=== PATIENT | female | born 1980 | race Caucasian/White ===

== ENCOUNTER 2018-03-23 16:57 | Inpatient (IN) | payer OTHER ==
[~2018-03-23] VITALS: Ht 149.9 cm; Wt 94.7 kg
[~2018-03-23 16:57] MED LIST: AMOXICILLIN 50500 MG PO; CIPROFLOXIN HC2.5 M1 OTIC; HYDROCHLOROTHIA25 M2 PO; MUPIROCIN22 GM TOP; NAPROSYN500 MG PO; NOHOMEMEDICATIONS; NORCO 5-325 TA1 EACH PO; ROBAXIN500 MG PO; TESSALON PERLE100 MG PO; ZPAK PO
[2018-03-23 17:03] VITALS: BP 132/77
[2018-03-23] MEDS ORDERED: LISINOPRIL20 MG (17:22)
[2018-03-23] MEDS ORDERED: HYDROCHLOROTH12.5 M1 PO (17:23)
[2018-03-23] MEDS ORDERED: CIPRO500 MG (17:24)
[2018-03-23] MEDS ORDERED: CELEXA20 MG PO (17:26)
[2018-03-23] MEDS ORDERED: ZOFRAN4 MG PO (17:27)
[2018-03-23 17:33] LABS: URINE BLOOD 3+ (Negative); URINE CLARITY CLEAR; URINE COLOR YELLOW; URINE GLUCOSE-RANDOM NEGATIVE (Negative); URINE KETONES 2+ (Negative); URINE LEUKOCYTES-REFLEX TRACE (Negative); URINE NITRITE-REFLEX NEGATIVE (Negative); URINE PROTEIN 1+ (Negative); URINE SPECIFIC GRAVITY 1.025 (1.005-1.030)
[2018-03-23 17:35] LABS: ICTOTEST (BILI CONFIRMATORY) Negative (Negative); URINE BILIRUBIN 1+ (Negative)
[2018-03-23 17:43] LABS: HEMATOCRIT 36.3 % (37.0-47.0); HEMOGLOBIN 12.7 gm/dL (12.0-15.0); MCH 29.9 pg (26.0-34.0); MCHC 35.1 g/dL (28.0-37.0); MCV 85.1 fL (80.0-100.0); MPV 8.5 fl. (7.2-11.1); NUCLEATED RBCS 0 /100WBC; PLATELET COUNT* 219 thou/uL (150-400); RBC 4.26 mil/uL (4.20-5.00); RDW-CV 12.6 % (10.5-14.5); WBC 10.9 thou/uL (4.0-11.0)
[2018-03-23 17:44] LABS: CRYSTALS None Seen /LPF (None Seen); HYALINE CASTS 0-3 Few /LPF (None Seen); MUCUS 0-3 Light strn/LPF (None Seen); SQUAMOUS >10 Many /LPF (0-3)
[2018-03-23 17:45] LABS: URINE WBC-REFLEX 6-15 Few /HPF (0-5)
[2018-03-23 17:46] LABS: BACTERIA-REFLEX 1-9 Few /HPF (None Seen)
[2018-03-23 17:51] LABS: CALCIUM 9.1 mg/dL (8.5-10.1)
[2018-03-23 17:53] LABS: POTASSIUM 2.5 mmol/L (3.5-5.1)
[2018-03-23 17:56] LABS: ALBUMIN 3.2 g/dL (3.4-5.0); TOTAL PROTEIN 7.5 g/dL (6.4-8.2)
[2018-03-23 18:21] LABS: ABSOLUTE LYMPHOCYTES 1.3 thou/uL (0.8-5.3); ABSOLUTE MONOCYTES 0.4 thou/uL (0.0-1.2); ABSOLUTE NEUTROPHILS 9.2 thou/uL (1.6-8.1); PLATELET ESTIMATE ADEQUATE
--- NOTE | 2018-03-23 18:29 | NUR ---
RN NOTIFIED OF CRITICAL POTASSIUM OF 2.5, PHYSICIAN NOTIFIED AND PT TOOK LIQUID POTASSIUM AFTER BEING UNABLE TO TAKE POTASSIUM PILLS. PT RESTING IN BED AT THIS TIME WITH ABX AND FLUIDS RUNNING. PT WAS HARD STICK AND REQUIRED 4 ATTEMPTS PRIOR TO IV ACCESS BEING ACHIEVED. PT RESTING AT THIS TIME.
[2018-03-23 21:10] VITALS: BP 139/75
[2018-03-23 21:13] VITALS: BP 124/67
[2018-03-24] VITALS: BP 144/73
[2018-03-24 04:00] VITALS: BP 128/77
--- NOTE | 2018-03-24 05:10 | NUR ---
PT ARRIVED TO ROOM 227 AROUND 2109. ASSESSMENT COMPLETED CHARTED. MEDICATIONS RESTARTED PER PHYSICIANS ORDERS. PT C/O BACK AND FLANK PAIN R/T KIDNEY INFECTION. PT HAS REDUCED APPITITE. PT HAS BEEN SLEEPING ON AND OFF ALL NIGHT, ABLE TO MAKE NEEDS KNOWN. WILL CONTINUE TO MONITOR.
[2018-03-24 08:10] VITALS: BP 136/84
--- NOTE | 2018-03-24 09:56 | NUR ---
RECEIVED REPORT FROM HARJIT AND ASSUMED CARE OF PT @ 9986.PT IS A/O,VSS,TRACING SR ON THE MONITOR.LUNG SOUNDS ARE CLEAR.LAST BM WAS TODAY.PT IS CALM AND COOPERATIVE WITH C/O PAIN IN RIGHT FLANK AND NAUSEA.MEDICATIONS GIVEN.PT IS UP AD JENELLE IN ROOM.CALL LIGHT WITHIN REACH.PT LEFT RESTING IN BED.WILL CONTINUE TO MONITOR.
--- NOTE | 2018-03-24 11:14 | NUR ---
MET WITH PT AND MOM TO DISCUSS HOME SITUATION/DC PLANNING. PT LIVES WITH SPOUSE AND CHILDREN, WORKS AND IS INDEPENDENT AND ACTIVE. DENIES DC NEEDS. WILL FOLLOW
[2018-03-24 12:00] VITALS: BP 152/81
[2018-03-24 16:00] VITALS: BP 148/85
--- NOTE | 2018-03-24 18:02 | NUR ---
VSS,CARDIAC MONITORING IN PLACE WITH NO CHANGES THIS SHIFT.PT PROGRESSING TOWARDS GOALS.PAIN WELL MANAGED WITH PO MEDICATIONS.NO C/O PAIN OR NAUSEA SINCE THIS AM.PT STATES FEELING SO MUCH BETTER TODAY.IV ANTIBIOTICS GIVEN.HOURLY ROUNDING COMPLETED FOR PT SAFETY.CALL LIGHT WITHIN REACH.WILL CONTINUE TO MONITOR FOR DURATION OF SHIFT.
[2018-03-24 20:00] VITALS: BP 149/93
[2018-03-25] VITALS: BP 146/83
[2018-03-25 04:00] VITALS: BP 123/96
--- NOTE | 2018-03-25 04:33 | NUR ---
ASSUMED PT CARE AT 1930. ASSESSMENT COMPLETED CHARTED. NO C/O PAIN OR DISCOMFORT. ABLE TO MAKE NEEDS KNOWN. IVF RUNNING AT 100. STATED SHE FEELS MUCH BETTER SINCE COMING INTO THE HOSPITAL. WILL CONTINUE TO MONITOR.
[2018-03-25 04:34] LABS: HEMATOCRIT 33.2 % (37.0-47.0); HEMOGLOBIN 11.6 gm/dL (12.0-15.0); MCV 85.8 fL (80.0-100.0); MPV 8.2 fl. (7.2-11.1); RBC 3.87 mil/uL (4.20-5.00); RDW-CV 12.5 % (10.5-14.5); WBC 4.1 thou/uL (4.0-11.0)
[2018-03-25 04:59] LABS: ALBUMIN 2.5 g/dL (3.4-5.0); CALCIUM 7.9 mg/dL (8.5-10.1); CREATININE 0.7 mg/dL (0.6-1.3); MAGNESIUM 2.2 mg/dL (1.8-2.4); POTASSIUM 3.7 mmol/L (3.5-5.1); TOTAL BILIRUBIN 0.1 mg/dL (<0.1-1.0); TOTAL PROTEIN 5.5 g/dL (6.4-8.2)
[2018-03-25 07:35] VITALS: BP 183/84
--- NOTE | 2018-03-25 09:50 | NUR ---
RECEIVED REPORT FROM HARJIT AND ASSUMED CARE OF PT @ [id number].PT IS A/O,VSS,TRACING SR ON THE MONITOR.LUNG SOUNDS ARE CLEAR.LAST BM WAS TODAY.IV LEFT WRIST PATENT WITH FLUIDS RUNNING @ 100ML/HR.PT IS CALM AND COOPERATIVE WITH NO C/O PAIN OR NAUSEA AT TIME OF ASSESSMENT.PT IS UP AD JENELLE.PT LEFT RESTING IN BED WITH CALL LIGHT WITHIN REACH. PT MADE MED-SURG STATUS.HEART MONITOR REMOVED.
[2018-03-25 16:00] VITALS: BP 170/100
--- NOTE | 2018-03-25 17:53 | NUR ---
BP HAS BEEN ELEVATED. NOTIFIED ORDERS RECEIVED.PT MADE MED-SURG.PROGRESSING TOWARDS GOALS.C/O HEADACHE PAIN.MEDICATIONS GIVEN.IV PATENT AND SALINE LOCKED.PT INFORMED OF PLAN OF CARE AND COMMUNICATES UNDERSTANDING.HOURLY ROUNDING COMPLETED FOR PT SAFETY.CALL LIGHT WITHIN REACH.WILL CONTINUE TO MONITOR FOR DURATION OF SHIFT.
[2018-03-25 20:00] VITALS: BP 175/96
[2018-03-26] VITALS: BP 193/88
[2018-03-26 04:43] LABS: MCH 29.6 pg (26.0-34.0); MCHC 34.3 g/dL (28.0-37.0); MCV 86.3 fL (80.0-100.0); MPV 8.3 fl. (7.2-11.1); RBC 4.05 mil/uL (4.20-5.00); RDW-CV 12.6 % (10.5-14.5); WBC 5.8 thou/uL (4.0-11.0)
[2018-03-26 04:54] LABS: CREATININE 0.8 mg/dL (0.6-1.3); POTASSIUM 3.7 mmol/L (3.5-5.1)
--- NOTE | 2018-03-26 07:33 | NUR ---
ASSUMED RESPONSBILITY OF PT THIS AM PT IS ALERT AND ORIENTED RESTING IN BED WITH EYES OPEN DENIES ANY PAIN POTASSIUM LEVEL WNL DISCUSSED WITH PT PT IS READY TO GO HOME WILL DISCUSS WITH TEAM ABOUT DISCHARGE IV ABT WILL CONT THIS AM CALL LIGHT IN REACH UP AD JENELLE M/S STATUS
[2018-03-26 08:00] VITALS: BP 167/86
[2018-03-26] MEDS ORDERED: LEVAQUIN 750 M750 MG PO (09:36)
[2018-03-26 10:27] VITALS: BP 167/86
[2018-03-26] MEDS ORDERED: TOPROL XL25 MG PO (11:40)
--- NOTE | 2018-03-26 11:54 | NUR ---
PT DISCHARGED HOME WITH SPOUSE NEW MEDS AND SCRIPTS GIVEN NO CONCERNS
== END 2018-03-26 11:59 | disposition home or self-care (01) | DRG 690 ==
LOC: M.ERS 16:57 → M.TBA-ER 19:55 → M.2W 19:55
PROVIDERS: Internal Medicine; Physician Assistant; ADMIT Internal Medicine
DX: N12 Tubulo-interstitial nephritis, not specified as acute or chronic (principal); I10 Essential (primary) hypertension; E86.0 Dehydration; E87.6 Hypokalemia; Z87.891 Personal history of nicotine dependence; Z79.899 Other long term (current) drug therapy

== ENCOUNTER 2018-09-17 04:23 | Emergency (ER) | payer OTHER ==
[~2018-09-17] VITALS: Ht 149.9 cm; Wt 90.7 kg
[~2018-09-17 04:23] MED LIST changes: +CELEXA20 MG PO; +CIPRO500 MG; +HYDROCHLOROTH12.5 M1 PO; +LEVAQUIN 750 M750 MG PO; +LISINOPRIL20 MG; +TOPROL XL25 MG PO; +ZOFRAN4 MG PO
[2018-09-17] MEDS ORDERED: TRAZODONE (04:39)
[2018-09-17 04:42] LABS: URINE BILIRUBIN NEGATIVE (Negative); URINE BLOOD 2+ (Negative); URINE CLARITY CLEAR; URINE COLOR YELLOW; URINE GLUCOSE-RANDOM NEGATIVE (Negative); URINE KETONES NEGATIVE (Negative); URINE LEUKOCYTES-REFLEX NEGATIVE (Negative); URINE NITRITE-REFLEX NEGATIVE (Negative); URINE PROTEIN NEGATIVE (Negative); URINE SPECIFIC GRAVITY >= 1.030 (1.005-1.030); URINE UROBILINOGEN 0.2 E.U./dl (0.2-1.0)
[2018-09-17 05:00] LABS: CASTS None Seen /LPF (None Seen); CRYSTALS None Seen /LPF (None Seen); MUCUS 4-6 Moderate strn/LPF (None Seen); SQUAMOUS 0-3 Few /LPF (0-3); URINE RBC 3-10 Few /HPF (0-2); URINE WBC-REFLEX None Seen /HPF (0-5)
[2018-09-17 05:06] LABS: ABSOLUTE BASOPHILS 0.1 thou/uL (0.0-0.2); ABSOLUTE LYMPHOCYTES 2.8 thou/uL (0.8-5.3); ABSOLUTE MONOCYTES 0.4 thou/uL (0.0-1.2); ABSOLUTE NEUTROPHILS 5.4 thou/uL (1.6-8.1); BASOPHILS 1.3 %; EOSINOPHILS 0.3 %; HEMATOCRIT 39.2 % (37.0-47.0); HEMOGLOBIN 13.5 gm/dL (12.0-15.0); LYMPHOCYTES 31.9 %; MCH 29.8 pg (26.0-34.0); MCHC 34.4 g/dL (28.0-37.0); MCV 86.7 fL (80.0-100.0); MONOCYTES 4.6 %; MPV 8.1 fl. (7.2-11.1); NUCLEATED RBCS 0 /100WBC; PLATELET COUNT* 289 thou/uL (150-400); POLYS 61.9 %; RBC 4.52 mil/uL (4.20-5.00); RDW-CV 12.9 % (10.5-14.5); WBC 8.8 thou/uL (4.0-11.0)
[2018-09-17 05:30] LABS: AMP/METHAMP POSITIVE (Negative); BARBITURATES Negative (Negative); BENZODIAZEPINES Negative (Negative); COCAINE Negative (Negative); METHADONE Negative (Negative); OPIATES Negative (Negative); PCP Negative (Negative); THC POSITIVE (Negative)
[2018-09-17 06:04] LABS: CALCIUM 8.7 mg/dL (8.5-10.1); CREATININE 0.9 mg/dL (0.6-1.3)
[2018-09-17 06:09] LABS: POTASSIUM 2.9 mmol/L (3.5-5.1)
[2018-09-17] MEDS ORDERED: CARAFATE 1 GM TA1 GM PO (06:35)
[2018-09-17] MEDS ORDERED: PEPCID20 MG PO (06:35)
[2018-09-17] MEDS ORDERED: POTASSIUM20 PO (06:40)
[2018-09-17] MEDS ORDERED: PHENERGAN 25 MG25 M1 PO (06:47)
[2018-09-17 07:02] VITALS: BP 114/77
== END 2018-09-17 07:00 | disposition home or self-care (01) ==
LOC: M.ERS 04:23
PROVIDERS: Emergency Medicine
DX: R10.32 Left lower quadrant pain (principal); R42 Dizziness and giddiness

== ENCOUNTER 2019-02-09 20:07 | Emergency (ER) | payer OTHER ==
[~2019-02-09] VITALS: Ht 149.9 cm; Wt 102.0 kg
[~2019-02-09 20:07] MED LIST changes: +CARAFATE 1 GM TA1 GM PO; +PEPCID20 MG PO; +PHENERGAN 25 MG25 M1 PO; +POTASSIUM20 PO; +TRAZODONE
[2019-02-09] MEDS ORDERED: RISPERDAL 1 MG T1 MG PO (20:19)
[2019-02-09] MEDS ORDERED: TRAZODONE HCL50 MG PO (20:20)
[2019-02-09 20:59] LABS: ABSOLUTE BASOPHILS 0.1 thou/uL (0.0-0.2); ABSOLUTE LYMPHOCYTES 2.7 thou/uL (0.8-5.3); ABSOLUTE MONOCYTES 0.5 thou/uL (0.0-1.2); ABSOLUTE NEUTROPHILS 4.7 thou/uL (1.6-8.1); BASOPHILS 0.9 %; EOSINOPHILS 0.5 %; HEMATOCRIT 37.4 % (37.0-47.0); HEMOGLOBIN 12.7 gm/dL (12.0-15.0); LYMPHOCYTES 33.6 %; MCH 29.6 pg (26.0-34.0); MCHC 33.8 g/dL (28.0-37.0); MCV 87.6 fL (80.0-100.0); MONOCYTES 5.7 %; MPV 7.9 fl. (7.2-11.1); NUCLEATED RBCS 0 /100WBC; PLATELET COUNT* 247 thou/uL (150-400); POLYS 59.3 %; RBC 4.28 mil/uL (4.20-5.00); RDW-CV 12.8 % (10.5-14.5); WBC 7.9 thou/uL (4.0-11.0)
[2019-02-09 21:01] LABS: URINE BILIRUBIN NEGATIVE (Negative); URINE BLOOD 1+ (Negative); URINE CLARITY CLEAR; URINE COLOR YELLOW; URINE GLUCOSE-RANDOM NEGATIVE (Negative); URINE KETONES TRACE (Negative); URINE LEUKOCYTES-REFLEX NEGATIVE (Negative); URINE NITRITE-REFLEX NEGATIVE (Negative); URINE PROTEIN NEGATIVE (Negative); URINE SPECIFIC GRAVITY >= 1.030 (1.005-1.030); URINE UROBILINOGEN 0.2 E.U./dl (0.2-1.0)
[2019-02-09 21:07] LABS: CALCIUM 8.2 mg/dL (8.5-10.1); CREATININE 0.9 mg/dL (0.6-1.3); POTASSIUM 3.3 mmol/L (3.5-5.1)
[2019-02-09 21:10] LABS: MUCUS >6 Heavy strn/LPF (None Seen); SQUAMOUS >10 Many /LPF (0-3)
[2019-02-09 21:11] LABS: CRYSTALS None Seen /LPF (None Seen); URINE WBC-REFLEX 0-5 Rare /HPF (0-5)
[2019-02-09 21:12] LABS: ALBUMIN 3.4 g/dL (3.4-5.0); BACTERIA-REFLEX 1-9 Few /HPF (None Seen); CASTS None Seen /LPF (None Seen); TOTAL BILIRUBIN 0.2 mg/dL (<0.1-1.0); TOTAL PROTEIN 6.6 g/dL (6.4-8.2); URINE RBC 3-10 Few /HPF (0-2)
[2019-02-09] MEDS ORDERED: IPRATROPIUM BRO15 ML NASAL (22:46)
[2019-02-09] MEDS ORDERED: VERTICALM25 MG PO (22:46)
[2019-02-09 23:01] VITALS: BP 134/84
== END 2019-02-09 23:02 | disposition home or self-care (01) ==
LOC: M.ERS 20:07
PROVIDERS: Personal Emergency Response Attendant
DX: R42 Dizziness and giddiness (principal); I10 Essential (primary) hypertension